=== PATIENT | male | born 1960 | race Caucasian/White ===

== ENCOUNTER 2017-04-23 08:57 | Inpatient (IN) | payer OTHER ==
[~2017-04-23] VITALS: Ht 170.2 cm; Wt 79.4 kg
[~2017-04-23 08:57] MED LIST: MULTIVITAMIN PO
[2017-04-23] MEDS ORDERED: SODIUM CHLORIDE 0.9% 1000ML 1,000 ML IV SCH (09:20)
[2017-04-23 09:28] LABS: BASOPHILS % (AUTO) 0.4 % (0.0-5.0); EOSINOPHILS % (AUTO) 2.1 % (0.0-8.0); HEMATOCRIT 45.5 % (42-54); LYMPHOCYTES % (AUTO) 27.2 % (21.0-51.0); MEAN CORPUSCULAR HEMOGLOBIN 27.7 pg (27.0-33.0); MEAN CORPUSCULAR HGB CONC 34.7 g/dL (32.0-36.0); MEAN CORPUSCULAR VOLUME 79.8 fL (79-99); MONOCYTES % (AUTO) 8.3 % (3.0-13.0); PLATELET COUNT (AUTO) 249 K/uL (130-400); RED CELL DISTRIBUTION WIDTH 13.6 % (11.0-15.5); WHITE BLOOD COUNT (AUTO) 5.6 K/uL (4.8-10.8)
[2017-04-23] MEDS ORDERED: ACETAMINOPHEN 325 MG TAB PO PRN ×2 (09:30)
[2017-04-23] MEDS ORDERED: LACTULOSE 20 GM/30 ML UDCUP PO PRN (09:30)
[2017-04-23] MEDS ORDERED: VANCOMYCIN 1GM+NS 250ML 250 ML IV ONE ×3 (09:30→14:01)
[2017-04-23] MEDS ORDERED: ONDANSETRON HCL 4 MG/2 ML VIAL IV PRN (09:30)
[2017-04-23] MEDS ORDERED: GUAIFENESIN-DM 200/20 MG 10 ML PO PRN (09:30)
[2017-04-23] MEDS ORDERED: MAG HYDROX/AL HYDROX/SIMETH ES 30 ML SUSP UDCUP PO PRN (09:30)
[2017-04-23] MEDS ORDERED: MEROPENEM 500MG+NS 50ML 50 ML IV SCH (09:30)
[2017-04-23] MEDS ORDERED: VANCOMYCIN PROTOCOL PER PHARMACY IV PRN (09:30)
[2017-04-23 09:39] LABS: POTASSIUM 4.1 mmol/L (3.5-5.1)
[2017-04-23 09:44] LABS: ALBUMIN 3.6 g/dL (3.5-5.0); BILIRUBIN,TOTAL 0.5 mg/dL (0.2-1.0); TOTAL PROTEIN, SERUM 7.3 g/dL (6.0-8.3)
[2017-04-23] MEDS ORDERED: ACETAMINOPHEN-CODEINE 300/30MG TAB ONE (09:46)
[2017-04-23 09:52] LABS: INR 0.93 (0.85-1.15); PROTHROMBIN TIME 9.8 SEC (9.6-11.6)
[2017-04-23] MEDS ORDERED: KETOROLAC TROMETHAMINE 15MG/ML IV PRN (10:45)
[2017-04-23] MEDS ORDERED: SODIUM CHLORIDE 0.9% 1000ML 1,000 ML IV ONE (11:39)
[2017-04-23] MEDS ORDERED: MEROPENEM 500 MG VIAL ONE (11:39)
[2017-04-23] MEDS ORDERED: COMPOUND IV REFRIGERATED 1 EACH IVSOLN MISC PRN (12:30)
[2017-04-23] MEDS ORDERED: MEROPENEM 500 MG VIAL IVP SCH (14:00)
[2017-04-23 14:30] VITALS: BP 134/82
[2017-04-23] MEDS ORDERED: GADOBENATE DIMEGLUMINE 20 ML IV ONE (14:41)
[2017-04-23 16:00] VITALS: BP 125/90
[2017-04-23] MEDS ORDERED: DIATR MEGLU/DIATRIZOATE SODIUM 30 ML BOTTLE PO ONE (16:13)
[2017-04-23] MEDS: ACETAMINOPHEN-CODEINE 300/30MG TAB PO PRN (18:44)
[2017-04-23 20:00] VITALS: BP 133/77
[2017-04-23] MEDS: MEROPENEM 500 MG VIAL IVP SCH (20:23)
[2017-04-23] MEDS: VANCOMYCIN 1.25 GM in SODIUM CHLORIDE 0.9% 250 ML IV SCH (20:24)
[2017-04-23] MEDS ORDERED: FAMOTIDINE/PF 20 MG/2 ML VIAL IV SCH (21:00)
[2017-04-23 23:42] VITALS: BP 138/83
[2017-04-24] VITALS (26 sets, daily range): BP systolic 106–146; BP diastolic 66–82
[2017-04-24] MEDS: MORPHINE SULFATE 2 MG/ML 1ML SYG IV PRN ×2 (00:53→23:24)
[2017-04-24] MEDS: MEROPENEM 500 MG VIAL IVP SCH ×3 (03:44→20:15)
[2017-04-24 05:05] LABS: HEMATOCRIT 42.8 % (42-54); MEAN CORPUSCULAR HEMOGLOBIN 28.1 pg (27.0-33.0); MEAN CORPUSCULAR HGB CONC 34.8 g/dL (32.0-36.0); MEAN CORPUSCULAR VOLUME 80.9 fL (79-99); PLATELET COUNT (AUTO) 255 K/uL (130-400); RED BLOOD CELL COUNT(AUTO) 5.29 MIL/uL (4.50-6.20); RED CELL DISTRIBUTION WIDTH 13.3 % (11.0-15.5); WHITE BLOOD COUNT (AUTO) 5.9 K/uL (4.8-10.8)
[2017-04-24 05:08] LABS: POTASSIUM 3.5 mmol/L (3.5-5.1)
[2017-04-24] MEDS ORDERED: LACTATED RINGERS 1000ML 1,000 ML IV ONE (07:33)
[2017-04-24] MEDS ORDERED: VANCOMYCIN HCL 1 GM VIAL ONE (08:06)
[2017-04-24] MEDS ORDERED: MIDAZOLAM HCL 1 MG/ML 2ML VIAL ONE (08:09)
[2017-04-24] MEDS ORDERED: PROPOFOL 10 MG/ML 20ML VIAL IV ONE (08:10)
[2017-04-24] MEDS ORDERED: FENTANYL CITRATE PF 50 MCG/1 ML 5ML AMP IV ONE (08:10)
[2017-04-24] MEDS: VANCOMYCIN 1.25 GM in SODIUM CHLORIDE 0.9% 250 ML IV SCH ×3 (08:45→21:25)
[2017-04-24] MEDS ORDERED: EPHEDRINE SULFATE 50 MG/ML AMPULE ONE (08:54)
[2017-04-24] MEDS ORDERED: DEXAMETHASONE SOD PHOSPHATE 10MG/ML 1ML VIAL ONE (09:14)
[2017-04-24] MEDS ORDERED: NEOSTIGMINE 5MG/5ML SYR IV ONE (09:14)
[2017-04-24] MEDS ORDERED: ONDANSETRON HCL 4 MG/2 ML VIAL ONE ×2 (09:14)
[2017-04-24] MEDS ORDERED: LIDOCAINE PF 2% 5ML ABBOJECT ONE (09:15)
[2017-04-24] MEDS: SODIUM CHLORIDE 0.9% 1000ML 1,000 ML IV SCH ×2 (09:40→20:15)
[2017-04-24] MEDS ORDERED: LIDOCAINE HCL-MPF 1% 2ML VIAL IVP PRN (09:45)
[2017-04-24] MEDS ORDERED: POTASSIUM CHLORIDE 10% ELIXIR 20 MEQ/15 ML UDCUP PO PRN (09:45)
[2017-04-24] MEDS ORDERED: KETOROLAC TROMETHAMINE 30MG/ML IV PRN (09:45)
[2017-04-24] MEDS ORDERED: HYDROCODONE/ACETAMINOPHEN 5/325 MG TAB PO PRN (09:45)
[2017-04-24] MEDS ORDERED: DIPHENHYDRAMINE HCL 25 MG CAPSULE PO PRN (09:45)
[2017-04-24] MEDS ORDERED: POTASSIUM CHLORIDE 20 MEQ ERTAB PO PRN (09:45)
[2017-04-24] MEDS ORDERED: DiphenhydrAMINE HCL 50 MG/ML VIAL IVP PRN (09:45)
[2017-04-24] MEDS ORDERED: POTASSIUM CHLORIDE 20MEQ/100ML 100 ML IV PRN (09:45)
[2017-04-24] MEDS ORDERED: MEPERIDINE-PF 50 MG/ML SYG ONE (10:39)
[2017-04-24] MEDS: ACETAMINOPHEN-CODEINE 300/30MG TAB PO PRN (12:35)
[2017-04-24] MEDS: HYDROCODONE/ACETAMINOPHEN 5/325 MG TAB PO PRN ×2 (16:54→20:59)
[2017-04-25] VITALS (7 sets, daily range): BP systolic 113–137; BP diastolic 66–90
[2017-04-25] MEDS: SODIUM CHLORIDE 0.9% 1000ML 1,000 ML IV SCH (04:18)
[2017-04-25] MEDS: MORPHINE SULFATE 2 MG/ML 1ML SYG IV PRN ×2 (04:27→09:57)
[2017-04-25] MEDS: MEROPENEM 500 MG VIAL IVP SCH ×2 (04:27→12:27)
[2017-04-25 05:25] LABS: MEAN CORPUSCULAR HEMOGLOBIN 27.5 pg (27.0-33.0); MEAN CORPUSCULAR HGB CONC 34.1 g/dL (32.0-36.0); MEAN CORPUSCULAR VOLUME 80.6 fL (79-99); PLATELET COUNT (AUTO) 282 K/uL (130-400); RED BLOOD CELL COUNT(AUTO) 5.21 MIL/uL (4.50-6.20); RED CELL DISTRIBUTION WIDTH 13.4 % (11.0-15.5); WHITE BLOOD COUNT (AUTO) 17.3 K/uL (4.8-10.8)
[2017-04-25 05:42] LABS: POTASSIUM 4.2 mmol/L (3.5-5.1)
[2017-04-25] MEDS: ACETAMINOPHEN-CODEINE 300/30MG TAB PO PRN (08:05)
[2017-04-25] MEDS: VANCOMYCIN 1.25 GM in SODIUM CHLORIDE 0.9% 250 ML IV SCH ×2 (08:05→20:40)
[2017-04-25] MEDS: ENOXAPARIN SODIUM 40 MG/0.4 ML SYRINGE SQ SCH (08:20)
[2017-04-25] MEDS: HYDROCODONE/ACETAMINOPHEN 5/325 MG TAB PO PRN ×2 (12:46→21:21)
[2017-04-25] MEDS ORDERED: CEFTAZIDIME 1GM+NS 50ML 50 ML IV SCH (13:15)
[2017-04-25] MEDS: CEFTAZIDIME PENTAHYDRATE 1 GM/VIAL IVP SCH ×2 (14:51→20:40)
[2017-04-26] VITALS (9 sets, daily range): BP systolic 124–139; BP diastolic 76–90
[2017-04-26] MEDS: HYDROCODONE/ACETAMINOPHEN 5/325 MG TAB PO PRN ×2 (04:37→13:51)
[2017-04-26] MEDS: CEFTAZIDIME PENTAHYDRATE 1 GM/VIAL IVP SCH ×2 (04:37→15:03)
[2017-04-26 05:07] LABS: HEMATOCRIT 37.5 % (42-54); MEAN CORPUSCULAR HEMOGLOBIN 28.3 pg (27.0-33.0); MEAN CORPUSCULAR HGB CONC 35.4 g/dL (32.0-36.0); MEAN CORPUSCULAR VOLUME 79.9 fL (79-99); PLATELET COUNT (AUTO) 270 K/uL (130-400); RED BLOOD CELL COUNT(AUTO) 4.69 MIL/uL (4.50-6.20); RED CELL DISTRIBUTION WIDTH 13.5 % (11.0-15.5); WHITE BLOOD COUNT (AUTO) 11.1 K/uL (4.8-10.8)
[2017-04-26 05:15] LABS: POTASSIUM 3.9 mmol/L (3.5-5.1)
[2017-04-26] MEDS: ENOXAPARIN SODIUM 40 MG/0.4 ML SYRINGE SQ SCH ×2 (09:00→09:13)
[2017-04-26] MEDS: VANCOMYCIN 1.25 GM in SODIUM CHLORIDE 0.9% 250 ML IV SCH (09:13)
[2017-04-26] MEDS ORDERED: TRAM50TA2 PO (09:22)
[2017-04-26] MEDS ORDERED: LIDOCAINE HCL 1% MDV 50ML VIAL ONE (10:20)
[2017-04-26] MEDS ORDERED: ISOVUE-300 100 ML VIAL IV ONE (10:20)
[2017-04-26] MEDS ORDERED: FENTANYL CITRATE PF 50 MCG/1 ML 2ML VIAL ONE (10:30)
[2017-04-26] MEDS ORDERED: OCTYL 2-CYANOACRYLATE 1 EACH TP ONE (10:50)
== END 2017-04-26 16:05 | disposition home or self-care (01) | DRG 501 ==
LOC: EDH 08:57 → EEVIPCON 09:20 → EDHIP 09:20 → 4BH 14:14
PROVIDERS: ADMIT Family Medicine; ATTEND Family Medicine
PROC: 0MB Bursae and Ligaments, Excision (ICD-10-PCS; principal; 2017-04-24 08:45)
PROC: B5131ZA Fluoroscopy of Right Jugular Veins using Low Osmolar Contrast, Guidance (ICD-10-PCS; 2017-04-26)
PROC: 0JHD3XZ Insertion of Tunneled Vascular Access Device into Right Upper Arm Subcutaneous Tissue and Fascia, Percutaneous Approach (ICD-10-PCS; 2017-04-26)
PROC: 05HM33Z Insertion of Infusion Device into Right Internal Jugular Vein, Percutaneous Approach (ICD-10-PCS; 2017-04-26)
PROC: B543ZZA Ultrasonography of Right Jugular Veins, Guidance (ICD-10-PCS; 2017-04-26)
DX: M75.52 Bursitis of left shoulder (principal); M00.9 Pyogenic arthritis, unspecified; M86.9 Osteomyelitis, unspecified; M75.110 Incomplete rotator cuff tear or rupture of unspecified shoulder, not specified as traumatic; M77.9 Enthesopathy, unspecified; Z87.442 Personal history of urinary calculi; Z79.2 Long term (current) use of antibiotics; Z90.49 Acquired absence of other specified parts of digestive tract; Z88.2 Allergy status to sulfonamides
CPT/HCPCS: 36415; 36558; 71045; 73223; 77001; 80048; 80053; 80202; 85025; 85027; 85610; 85651; 85730; 86141; 87040; 87070; 87076; 87205; 88304; 88311; 93005; A4218; A4565; A9577; C1751; C1894; J0713; J1100; J1644; J1650; J1885; J2001; J2175; J2185; J2250; J2405; J2704; J2710; J3010; J3370; J3490; J7030; J7120; Q9963; Q9967

== ENCOUNTER 2018-01-21 06:17 | Day surgery (SDC) | payer OTHER ==
[~2018-01-21] VITALS: Ht 170.2 cm; Wt 77.7 kg
[~2018-01-21 06:17] MED LIST changes: +TRAM50TA2 PO
[2018-01-21 06:57] VITALS: BP 103/74
[2018-01-21] MEDS ORDERED: DEXL60CA3 PO (06:57)
[2018-01-21] MEDS ORDERED: SUCR1TAB28 PO (06:57)
[2018-01-21] MEDS ORDERED: PROPOFOL 10 MG/ML 20ML VIAL IV ONE (07:37)
[2018-01-21 07:46] VITALS: BP 89/96
[2018-01-21 07:51] VITALS: BP 108/69
[2018-01-21 07:58] VITALS: BP 106/70
[2018-01-21 08:01] VITALS: BP 111/77
[2018-01-21 08:08] VITALS: BP 123/75
== END 2018-01-21 08:30 | disposition home or self-care (01) ==
LOC: DAH 06:17
PROVIDERS: ATTEND Internal Medicine
DX: K31.7 Polyp of stomach and duodenum (principal); K29.50 Unspecified chronic gastritis without bleeding; K44.9 Diaphragmatic hernia without obstruction or gangrene; K31.89 Other diseases of stomach and duodenum; K29.70 Gastritis, unspecified, without bleeding; Z98.890 Other specified postprocedural states; Z79.899 Other long term (current) drug therapy; K21.9 Gastro-esophageal reflux disease without esophagitis; Z88.2 Allergy status to sulfonamides
CPT/HCPCS: 43239; 43251; A4606; J2704